=== PATIENT | male | born 1995 | race Caucasian/White ===

== ENCOUNTER 2017-05-26 02:11 | Emergency (ER) | payer BC ==
[2017-05-26 03:29] VITALS: BP 115/72
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
--- NOTE | 2017-05-26 08:06 | RAD ---
HISTORY: Head injury COMPARISONS: None TECHNIQUE: Multiple contiguous axial CT scans were obtained of the head without intravenous contrast. FINDINGS: HEMORRHAGE/INFARCT: There is no hemorrhage or acute infarct. MASSES/SHIFT: There is no mass or shift. EXTRA-AXIAL SPACES: There are no extra-axial fluid collections. SULCI AND VENTRICLES: The sulci and ventricles are normal in size and position for the patient's stated age. CEREBRUM: There are no focal parenchymal abnormalities. BRAINSTEM: There are no focal parenchymal abnormalities. CEREBELLUM: There are no focal parenchymal abnormalities. VESSELS: The vessels are grossly normal. PARANASAL SINUSES: The paranasal sinuses are clear. ORBITS: The orbits are unremarkable. BONES AND SOFT TISSUE: No bone or soft tissue abnormalities are noted. OTHER: None IMPRESSION: NO ACUTE INTRACRANIAL PATHOLOGY.
--- NOTE | 2017-05-26 08:06 | RAD ---
HISTORY: Right wrist pain, injury COMPARISONS: January 05, 2010 VIEWS: 3, Frontal, lateral, and oblique views of the right wrist FINDINGS: BONE DENSITY: Normal. BONES: There is no displaced fracture. JOINTS: There is no arthropathy. ALIGNMENT: There is no dislocation. SOFT TISSUES: Unremarkable. OTHER FINDINGS: None. IMPRESSION: NO ACUTE OSSEOUS INJURY. IF SYMPTOMS PERSIST, RECOMMEND REPEAT IMAGING.
== END 2017-05-26 05:00 | disposition home or self-care (01) ==
LOC: ED 02:11
DX: S09.90XA Unspecified injury of head, initial encounter (principal); F10.129 Alcohol abuse with intoxication, unspecified; R51 Headache; Z87.891 Personal history of nicotine dependence; Y09 Assault by unspecified means; Y92.9 Unspecified place or not applicable
CPT/HCPCS: 70450; 99283

== ENCOUNTER 2017-10-05 17:44 | Inpatient (IN) | payer BC ==
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
[2017-10-05 19:40] LABS: ABS Basophils 0.1 10^3/ul (0-0.2); ABS Eosinophils 0.1 10^3/ul (0-0.6); ABS Lymphocytes 1.8 10^3/ul (1.0-4.8); ABS Monocytes 0.6 10^3/ul (0-0.8); ABS Neutrophils 6.5 10^3/ul (1.5-7.7); ABS Nucleated RBC 0 10^3/ul; Eosinophil % 1.6 % (0-6); Hematocrit 45 % (42-52); Hemoglobin 15.8 g/dl (14.0-18.0); Lymphocyte % 19.9 % (25-47); Mean Corpuscular HGB Conc 35 g/dl (31-36); Mean Corpuscular Hemoglobin 34 pg (27-31); Mean Corpuscular Volume 95 fL (80-94); Mean Platelet Volume 7.4 um3 (7.4-10.4); Nucleated Red Blood Cells % 0.3; Platelet Count 257 10^3/ul (150-450); Red Blood Count 4.73 10^6/ul (4.00-5.40); Red Cell Distribution Width 12 % (10.5-15); White Blood Count 9.1 10^3/ul (3.5-10.8)
[2017-10-05 19:53] LABS: EGFR Non-African American 75.8 (>60)
[2017-10-05 20:36] LABS: Urine Appearance Cloudy; Urine Blood Negative (Negative); Urine Color Yellow; Urine Ketones Negative (Negative); Urine Protein 1+(30 mg/dL) (Negative); Urine Red Blood Cell Absent (Absent); Urine Specific Gravity 1.028 (1.010-1.030); Urine Urobilinogen Negative (Negative); Urine White Blood Cell Absent (Absent)
[2017-10-06] MEDS ORDERED: Acetaminophen TAB* 325 MG PO PRN (00:15)
[2017-10-06] MEDS ORDERED: diPHENhydraMINE PO* 50 MG PO PRN (00:17)
[2017-10-06] MEDS ORDERED: chlorproMAZINE TAB* 50 MG PO PRN (00:18)
[2017-10-06] MEDS ORDERED: clonazePAM TAB(*) 1 MG PO ONE (00:20)
[2017-10-06] MEDS: Vitamin THERAPEUTIC TAB PO SCH (10:15)
[2017-10-06] MEDS: Venlafaxine EXT RELEASE CAP* 37.5 MG PO SCH (16:17)
[2017-10-06] MEDS: clonazePAM TAB(*) 1 MG PO PRN ×2 (16:18→21:34)
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
[2017-10-06] MEDS: Gabapentin CAP(*) 400 MG PO SCH (21:33)
[2017-10-06] MEDS ORDERED: LORazepam INJ* 2 MG/ML 1 ML VIAL ONE (23:28)
[2017-10-06] MEDS ORDERED: NS 0.9% 1000 ML* 1,000 ML IV SCH (23:45)
[2017-10-06] MEDS ORDERED: Metoprolol Tartrate IV* 1 MG/ML 5 ML VIAL ONE (23:53)
[2017-10-07] MEDS ORDERED: LORazepam INJ* 2 MG/ML 1 ML VIAL ONE
[2017-10-07] MEDS ORDERED: Metoprolol Tartrate IV* 1 MG/ML 5 ML VIAL IV ONE (00:02)
[2017-10-07] MEDS ORDERED: LORazepam INJ* 2 MG/ML 1 ML VIAL IV PUSH ONE (00:04)
[2017-10-07 00:29] LABS: EGFR Non-African American 87.5 (>60)
[2017-10-07 00:51] LABS: INR 0.93 (0.77-1.02)
[2017-10-07 01:00] LABS: ABS Basophils 0.1 10^3/ul (0-0.2); ABS Eosinophils 0.2 10^3/ul (0-0.6); ABS Lymphocytes 4.7 10^3/ul (1.0-4.8); ABS Monocytes 1.3 10^3/ul (0-0.8); ABS Neutrophils 8.5 10^3/ul (1.5-7.7); ABS Nucleated RBC 0.1 10^3/ul; Hematocrit 51 % (42-52); Hemoglobin 17.7 g/dl (14.0-18.0); Lymphocyte % 32.1 % (25-47); Mean Corpuscular HGB Conc 35 g/dl (31-36); Mean Corpuscular Hemoglobin 34 pg (27-31); Mean Corpuscular Volume 96 fL (80-94); Mean Platelet Volume 8.6 um3 (7.4-10.4); Nucleated Red Blood Cells % 0.3; Platelet Count 315 10^3/ul (150-450); Red Blood Count 5.27 10^6/ul (4.00-5.40); Red Cell Distribution Width 12 % (10.5-15); White Blood Count 14.7 10^3/ul (3.5-10.8)
[2017-10-07] MEDS: NS 0.9% 1000 ML* 1,000 ML IV SCH ×2 (02:43→03:48)
[2017-10-07 03:27] LABS: EGFR Non-African American 93.7 (>60)
--- NOTE | 2017-10-07 03:39 | PN ---
Progress Note - Progress Note Date of Service: 10/07/17 Note: CAT Response PCP: Kelly Hebert MD Date/Time: 10/06/2017 8169 CC: chills, tremors HPI: Mr Joshi is a 22YO male HX "severe anxiety" who was a CAT call from the [facility]. Upon arrival, he was found to be tachypneic in the 40s with tachycardia in the 180-200 range, profusely diaphoretic, with generalized fine tremors. He initially reported only N/T in BLEs & hands, but admitted to sharp non- radiating non-exertional chest pain associated with subjective SOB. Initial ECG was uninterpretable 2nd artifact. Given his acute presentation, emergent stabilization was felt necessary. Per Nut Culler direction he was taken to the ED and managed by me. He had been given 2mg IV lorazepam in [facility] and another 2mg IV after arriving to the ED. He also received 5mg IV metoprolol in ED. This with gentle encouragement allowed him to relax which markedly improved his RR & tachycardia. However as soon as his parents arrived, he returned to tachycaria & tachypnea. Lab values were notable mainly for a lactic acid of 3.6. Repeat ECG was negative for acute finding. His clonazepam has been down titrated on [facility]. He admits to daily marijuana use and 2-3 alcoholic drinks 2-3x/ week. 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; full code status FamHx: Mother: severe anxiety; Father: severe anxiety & anger management issues ; multiple siblings: severe anxiety ROS: as above, otherwise reviewed and all were negative vitals: Vital Signs Temp 36.8 C 10/06/17 07:48 Pulse 68 10/07/17 01:18 Resp 22 10/07/17 01:18 BP 122/81 10/07/17 01:18 Pulse Ox 94 10/07/17 01:18 Intake & Output 10/06/17 10/06/17 10/07/17 11:59 23:59 11:59 Weight 58.967 kg Constitutional: NAD, normally developed, well-nourished male HEENM: atraumatic; sclera/conjunctiva: anicteric/clear; hearing: clinically intact; oropharynx: clear, mucosa moist Neck: soft tissue: non-tender; thyroid: normal Pulmonary: clear to auscultation bilaterally, good aeration, no accessory muscle use CV: RR/RR, normal S1S2, no carotid bruit, no jugular venous distention, 2+ B DP/ PT, no edema Abdominal: soft, non-distended, non-tender, no rebound/guarding/rigidity, normoactive bowel sounds, no hepatosplenomegaly or masses, no costovertebral angle tenderness Musculoskeletal: general: grossly intact, non-tender Integumental: profusely diaphoretic; normal appearance and texture of exposed skin Psychiatric orientation: AA&O to PPS affect: severely anxious mood: cooperative eye contact: poor content: reliable responses: slowed, stuttering insight: poor Testing: Laboratory Results - last 24 hr 10/05/17 10/06/17 10/06/17 19:24 23:10 23:20 WBC RBC Hgb Hct MCV MCH MCHC RDW Plt Count MPV Neut % (Auto) Lymph % (Auto) [place] % (Auto) Eos % (Auto) Baso % (Auto) Absolute Neuts (auto) Absolute Lymphs (auto) Absolute Monos (auto) Absolute Eos (auto) Absolute Basos (auto) Absolute Nucleated RBC Nucleated RBC % INR (Anticoag Therapy) 0.93 APTT 28.1 Sodium Potassium Chloride Carbon Dioxide Anion Gap BUN Creatinine Est GFR ( Amer) Est GFR (Non-Af Amer) BUN/Creatinine Ratio Glucose POC Glucose (mg/dL) 85 Hemoglobin A1c 4.7 Lactic Acid Calcium Ionized Calcium Phosphorus Total Bilirubin AST ALT Alkaline Phosphatase CK-MB (CK-2) Troponin I Total Protein Albumin Globulin Albumin/Globulin Ratio Blood Type Antibody Screen 10/06/17 10/06/17 10/06/17 23:20 23:20 23:20 WBC 14.7 H RBC 5.27 Hgb 17.7 Hct 51 MCV 96 H MCH 34 H MCHC 35 RDW 12 Plt Count 315 MPV 8.6 Neut % (Auto) 57.6 Lymph % (Auto) 32.1 [place] % (Auto) 8.7 H Eos % (Auto) 1.0 Baso % (Auto) 0.6 Absolute Neuts (auto) 8.5 H Absolute Lymphs (auto) 4.7 Absolute Monos (auto) 1.3 H Absolute Eos (auto) 0.2 Absolute Basos (auto) 0.1 Absolute Nucleated RBC 0.1 Nucleated RBC % 0.3 INR (Anticoag Therapy) APTT Sodium 139 Potassium 3.8 Chloride 103 Carbon Dioxide 16 L Anion Gap 20 H BUN 13 Creatinine 1.05 Est GFR ( Amer) 105.9 Est GFR (Non-Af Amer) 87.5 BUN/Creatinine Ratio 12.4 Glucose 104 H POC Glucose (mg/dL) Hemoglobin A1c Lactic Acid Calcium 10.1 Ionized Calcium 4.23 L Phosphorus 2.6 Total Bilirubin AST ALT Alkaline Phosphatase CK-MB (CK-2) 1.7 Troponin I 0.01 Total Protein Albumin Globulin Albumin/Globulin Ratio Blood Type Antibody Screen 10/06/17 10/06/17 10/07/17 23:20 23:20 02:51 WBC RBC Hgb Hct MCV MCH MCHC RDW Plt Count MPV Neut % (Auto) Lymph % (Auto) [place] % (Auto) Eos % (Auto) Baso % (Auto) Absolute Neuts (auto) Absolute Lymphs (auto) Absolute Monos (auto) Absolute Eos (auto) Absolute Basos (auto) Absolute Nucleated RBC Nucleated RBC % INR (Anticoag Therapy) APTT Sodium Potassium Chloride Carbon Dioxide Anion Gap BUN Creatinine Est GFR ( Amer) Est GFR (Non-Af Amer) BUN/Creatinine Ratio Glucose POC Glucose (mg/dL) Hemoglobin A1c Lactic Acid 3.6 H* 0.5 Calcium Ionized Calcium Phosphorus Total Bilirubin AST ALT Alkaline Phosphatase CK-MB (CK-2) Troponin I Total Protein Albumin Globulin Albumin/Globulin Ratio Blood Type O Negative Antibody Screen Negative 10/07/17 02:51 WBC RBC Hgb Hct MCV MCH MCHC RDW Plt Count MPV Neut % (Auto) Lymph % (Auto) [place] % (Auto) Eos % (Auto) Baso % (Auto) Absolute Neuts (auto) Absolute Lymphs (auto) Absolute Monos (auto) Absolute Eos (auto) Absolute Basos (auto) Absolute Nucleated RBC Nucleated RBC % INR (Anticoag Therapy) APTT Sodium 141 Potassium 3.6 Chloride 108 Carbon Dioxide 23 Anion Gap 10 BUN 12 Creatinine 0.99 Est GFR ( Amer) 113.4 Est GFR (Non-Af Amer) 93.7 BUN/Creatinine Ratio 12.1 Glucose 90 POC Glucose (mg/dL) Hemoglobin A1c Lactic Acid Calcium 8.6 Ionized Calcium Phosphorus Total Bilirubin 0.70 AST 18 ALT 10 Alkaline Phosphatase 67 CK-MB (CK-2) Troponin I Total Protein 6.9 Albumin 4.3 Globulin 2.6 Albumin/Globulin Ratio 1.7 Blood Type Antibody Screen ECG, personally reviewed: sinus tachycardia, no ischemia Impression: 22M Hx severe anxiety presenting with same associated with severe tachycardia DIAGNOSIS & PLAN Primary severe anxiety : continue medications as is : given 2mg lorazepam in BSE and another 2mg lorazepan in ED : safety monitor atypical chest pain : telemetry : trend troponin : recheck ECG in AM : transfer care to hospitalist service Admission Rational: medical observation for r/o chest pain DVTp: RACHANA Code Status: full HCP: mother
[2017-10-07] MEDS: Vitamin THERAPEUTIC TAB PO SCH (08:49)
[2017-10-07] MEDS: Al Hydrox/Mg Hydrox/Simet LIQ* 30 ML UDC PO PRN ×2 (08:49→18:03)
[2017-10-07] MEDS: Gabapentin CAP(*) 400 MG PO SCH ×2 (08:49→22:12)
[2017-10-07] MEDS: Venlafaxine EXT RELEASE CAP* 37.5 MG PO SCH (08:49)
[2017-10-07] MEDS: clonazePAM TAB(*) 1 MG PO PRN ×3 (09:33→20:11)
--- NOTE | 2017-10-07 14:26 | PN ---
Subjective Date of Service: 10/07/17 Interval History: Mr. Joshi is initially angry and frustrated but is tearful and apologetic on return exam. He reports continued chest pain and generalized abdominal pain with nausea. Objective Active Medications: Acetaminophen (Tylenol Tab*) 650 mg PO Q4H PRN Al Hydrox/Mg Hydrox/Simethicone (Maalox Plus*) 30 ml PO Q4H PRN Chlorpromazine HCl (Thorazine Tab*) 50 mg PO ONCE PRN Clonazepam (Klonopin Tab(*)) 1 mg PO TID PRN Diphenhydramine HCl (Benadryl Po*) 50 mg PO ONCE PRN Gabapentin (Neurontin Cap(*)) 800 mg PO BID GREGORIO Sodium Chloride (Ns 0.9% 1000 Ml*) 1,000 mls @ 0 mls/hr IV WIDE OPEN GREGORIO Multivitamins (Theragran Tab*) 1 tab PO DAILY GREGORIO Venlafaxine HCl (Effexor Xr Cap*) 37.5 mg PO DAILY GREGORIO Vital Signs: Temp Pulse Resp BP Pulse Ox 98.8 F 79 16 137/76 100 10/07/17 11:40 10/07/17 11:40 10/07/17 11:40 10/07/17 11:40 10/07/17 11:40 Oxygen Devices in Use Now: None Appearance: Male lying in bed in NAD, parents at bedside Eyes: No Scleral Icterus Ears/Nose/Mouth/Throat: Mucous Membranes Moist Neck: Trachea Midline Respiratory: Symmetrical Chest Expansion and Respiratory Effort Cardiovascular: NL Sounds; No Murmurs; No JVD, No Edema Abdominal: - - Soft, generalized tenderness, no rebound, BS + Extremities: No Edema Skin: No Rash or Ulcers Neurological: Alert and Oriented x 3, NL Muscle Strength and Tone Nutrition: Taking PO's Result Diagrams: 10/06/17 23:20 10/07/17 02:51 Assess/Plan/Problems-Billing Assessment: Mr. Joshi is a 22 yo M with a PMH of who was admitted on - Patient Problems (1) Chest pain Comment: - Reports continued chest pain. - Trops negative, EKG without evidence of ischemia. - Suspect related to panic attack and anxiety. If pain persistent, will consider echo tomorrow. (2) Abdominal pain Comment: - Abd xray negative. Labs negative. - Suspect related to stress and anxiety, patient concurs. - Will consider CT abd if persistent tomorrow. (3) Anxiety Comment: - Continue clonazepam and venlafexine per MHU. - Patient originally admitted to MHU and will need to return when medically stable. - Appreciate Dr. Zapien's input. (4) DVT prophylaxis Comment: - Early mobility Status and Disposition: Inpatient. Plan for discharge to MHU when medically stable, likely in AM.
--- NOTE | 2017-10-07 15:54 | RAD ---
Indication: Diaphoresis. Pallor. Abdominal pain. Comparison: No relevant prior exams available on the [facility] [place] for comparison. Technique: Supine and upright views of the abdomen. Report: Negative for free air beneath the diaphragm. Unremarkable bowel gas pattern. No suspicious calcifications or mass effect. Clear lung bases. IMPRESSION: #. No abdominal pelvic pathologic process evident.
--- NOTE | 2017-10-07 16:54 | PN ---
Progress Note - Progress Note Date of Service: 10/07/17 Note: Went to see Anton on medical floor. His parents were there with him the entire period. They were insisting that he be discharges home because the hospital envioronment is responsible for his cardiac condition and he shouldn't be here any longer. Education provided regarding his current health condition and need for him to comeback to the [facility] after medical clearance. Please review my H&P done on 10/06/17 for details specially the disfunction in the household most possible reason for Anton's detorioration of mental status which needs to be looked at by the treatment team on [facility]. They are in agreement and Anton will be back to [facility] after medical stabilization. He is still complaining of chest pain and an Echo-cardiogram is scheduled for tomorrow.
[2017-10-08] MEDS: PROCHLORPERAZINE INJ 5 MG/ML 2 ML VIAL IV PRN ×2 (03:11→10:29)
[2017-10-08] MEDS: clonazePAM TAB(*) 1 MG PO PRN ×2 (03:16→10:27)
--- NOTE | 2017-10-08 07:37 | PN ---
Subjective Date of Service: 10/08/17 Interval History: Mr. Joshi reports that he is feeling better today and denies any chest or abdominal pain. He and his family are eager to return to the Behavioral Health Unit today. Objective Active Medications: Acetaminophen (Tylenol Tab*) 650 mg PO Q4H PRN Al Hydrox/Mg Hydrox/Simethicone (Maalox Plus*) 30 ml PO Q4H PRN Chlorpromazine HCl (Thorazine Tab*) 50 mg PO ONCE PRN Clonazepam (Klonopin Tab(*)) 1 mg PO TID PRN Diphenhydramine HCl (Benadryl Po*) 50 mg PO ONCE PRN Gabapentin (Neurontin Cap(*)) 800 mg PO BID GREGORIO Multivitamins (Theragran Tab*) 1 tab PO DAILY GREGORIO Prochlorperazine Edisylate (Compazine Inj*) 5 mg IV Q6H PRN Venlafaxine HCl (Effexor Xr Cap*) 37.5 mg PO DAILY GREGORIO Vital Signs: Temp Pulse Resp BP Pulse Ox 97.6 F 84 16 131/90 100 10/08/17 03:05 10/08/17 03:36 10/08/17 05:00 10/08/17 03:36 10/08/17 03:36 Oxygen Devices in Use Now: None Appearance: Male lying in bed in NAD Eyes: No Scleral Icterus Ears/Nose/Mouth/Throat: Mucous Membranes Moist Neck: Trachea Midline Respiratory: Symmetrical Chest Expansion and Respiratory Effort, Clear to Auscultation Cardiovascular: NL Sounds; No Murmurs; No JVD, No Edema Extremities: No Edema Skin: No Rash or Ulcers Neurological: Alert and Oriented x 3, NL Muscle Strength and Tone Nutrition: Taking PO's Result Diagrams: 10/06/17 23:20 10/07/17 02:51 Assess/Plan/Problems-Billing Assessment: Mr. Joshi is a 22 yo M with a PMH of who was admitted on - Patient Problems (1) Chest pain Comment: - Resolved. - Trops negative, EKG without evidence of ischemia. - Suspect related to panic attack and anxiety. (2) Abdominal pain Comment: - Abd xray negative. Labs negative. - Suspect related to stress and anxiety, patient concurs. (3) Anxiety Comment: - Continue clonazepam and venlafexine per MHU. - Patient originally admitted to MHU and will need to return today. - Appreciate Dr. Zapien's input. (4) DVT prophylaxis Comment: - Early mobility Status and Disposition: Inpatient. Discharge to U.
[2017-10-08] MEDS: Gabapentin CAP(*) 400 MG PO SCH (07:56)
[2017-10-08] MEDS: Venlafaxine EXT RELEASE CAP* 37.5 MG PO SCH (07:57)
[2017-10-08] MEDS: Vitamin THERAPEUTIC TAB PO SCH (07:57)
[2017-10-08] MEDS: Al Hydrox/Mg Hydrox/Simet LIQ* 30 ML UDC PO PRN (08:32)
[2017-10-08 08:33] LABS: ABS Basophils 0.1 10^3/ul (0-0.2); ABS Eosinophils 0.1 10^3/ul (0-0.6); ABS Lymphocytes 2.8 10^3/ul (1.0-4.8); ABS Monocytes 0.8 10^3/ul (0-0.8); ABS Neutrophils 6.7 10^3/ul (1.5-7.7); ABS Nucleated RBC 0 10^3/ul; Eosinophil % 0.5 % (0-6); Hematocrit 46 % (42-52); Hemoglobin 16.4 g/dl (14.0-18.0); Lymphocyte % 27.1 % (25-47); Mean Corpuscular HGB Conc 36 g/dl (31-36); Mean Corpuscular Hemoglobin 33 pg (27-31); Mean Corpuscular Volume 93 fL (80-94); Mean Platelet Volume 8.1 um3 (7.4-10.4); Nucleated Red Blood Cells % 0.2; Platelet Count 272 10^3/ul (150-450); Red Blood Count 4.95 10^6/ul (4.00-5.40); Red Cell Distribution Width 12 % (10.5-15); White Blood Count 10.5 10^3/ul (3.5-10.8)
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
--- NOTE | 2017-10-08 13:03 | PN ---
Subjective - Subjective Date of Service: 10/08/17 Service Type: 10886 Hosp care 25 min moderate complexity Subjective: Patient was seen by self, discussed with treatment team, chart was reviewed. Patient has been compliant with his medications on the floors, no reported side effects. Patient reports improvement in his symptoms of mood and anxiety. Patient reports that Adderall has been causing his anxiety and mood to get worse. And patient's Klonopin dose has been increased by outpatient provider to counter anxiety and tolerance. Patient on the floor has been doing better managing that. Also after interviewing with patient, family including both mother and father were involved and Patient sleeping has been better on the unit. Patient eating has been fair. Patient has been cooperative with staff. Patient behavior has been in control on the floor with no dangerous behavior to self and others. Patient mood was less anxious and less dysphoric. Patient was able to communicate his feelings with parents and also family was educated about current condition and preventative measure and problem solving in moment of stress. Patient after having a session with family was able to find them supportive than punitive. Parents were able to understand their mistakes and reported that they are going to therapy session regularly to overcome their dysfunctional family system. Patient was offered voluntary hospitalization but was not interested in inpatient but agreed to go to outpatient follow up and [facility] program. Patient also wants to give his effort in the upcoming exam but is not worried about the outcome. Patietn and family feel safe returning home and currently is not danger to self and others and caring for himself and did not meeting criteria for involuntary hospitalization. Patient has been reporting no suicidal or homicidal ideation. No psychotic symptoms of delusions or hallucinations. Objective - Appearance Appearance: Healthy Appearing Dysmorphic Features: No Hygiene: Normal Grooming: Fairly Well Kept - Behavior Psychomotor Activities: Normal Exhibits Abnormal Movement: No - Attitude and Relatedness Attitude and Relatedness: Cooperative Eye Contact: Fair - Speech Quality: Unpressured Latencies: Normal Quantity: Appropriate - Mood Patient's Decription of Mood: "Okay" - Affect Observed Affect: Fair Affect Consistent with: Euthymia - some anxiety - Thought Process Patient's Thought Process: Coherent Thought Content: No Passive Wish, No Suicidal Planning, No Homicidal Ideation, No Paranoid Ideation - Sensorium Experiencing Hallucinations: No, Sensorium is Clear Type of Hallucinations: Visual: No, Auditory: No, Command: No - Level of Consciousness Level of Consciousness: Alert Orientation: Yes Intact, Yes Orientated to Time, Yes Orientated to Place, Yes Orientated to Person - Impulse Control Impulse Control: Intact - Insight and Judgement Insight and Judgement: Fair - Medication Management Medication Management Adherence: Yes Assessment - Assessment Inpatient DSM-V Dx: F43.25 Clinical Impression: Patient with history of depression, anxiety and attention deficit. Patient was recently admitted due to worsening of his behavior and mood deregulation and later was transfered to medical floor due to benzo withdrawal symptoms. Patient has also been having interpersonal difficulty at home with his parents . Family has been trying to make it helpful for everyone at home and address their emotional needs and have better understanding of each other. Patient is not a danger to self and others at this time and caring for self and agreeing to outpatient psychiatric treatment both medication management and therapy. Plan - Plan Treatment Plan: Name: KAYE HARMON Birthdate: 1995 [id number] - Patient and family agreed to the discharge and wanting to f/u outpatient psychiatric treatment for medication and therapy - Patient and family offered inpatient care for medication adjustment but wanting to do outpatient and currently do not meet criteria for inpatient psychiatric care. - Continue with current psychotropic medications. Medications: Current Medications Acetaminophen (Tylenol Tab*) 650 mg PO Q4H PRN PRN Reason: PAIN or TEMP > 101 F Last Admin: 10/07/17 08:49 Dose: 650 mg Al Hydrox/Mg Hydrox/Simethicone (Maalox Plus*) 30 ml PO Q4H PRN PRN Reason: INDIGESTION Last Admin: 10/08/17 08:32 Dose: 30 ml Chlorpromazine HCl (Thorazine Tab*) 50 mg PO ONCE PRN PRN Reason: .ANXIETY Clonazepam (Klonopin Tab(*)) 1 mg PO TID PRN PRN Reason: ANXIETY Last Admin: 10/08/17 10:27 Dose: 1 mg Diphenhydramine HCl (Benadryl Po*) 50 mg PO ONCE PRN PRN Reason: ANXIETY Last Admin: 10/06/17 00:48 Dose: 50 mg Gabapentin (Neurontin Cap(*)) 800 mg PO BID [facility] Last Admin: 10/08/17 07:56 Dose: 800 mg Multivitamins (Theragran Tab*) 1 tab PO DAILY [facility] Last Admin: 10/08/17 07:57 Dose: 1 tab Prochlorperazine Edisylate (Compazine Inj*) 5 mg IV Q6H PRN PRN Reason: NAUSEA/VOMITING Last Admin: 10/08/17 10:29 Dose: 5 mg Venlafaxine HCl (Effexor Xr Cap*) 37.5 mg PO DAILY GREGORIO Last Admin: 10/08/17 07:57 Dose: 37.5 mg - Discharge Plan Discharge Plan: Outpatient Follow Up
[2017-10-08 13:14] VITALS: BP 136/83
== END 2017-10-06 23:46 | disposition home or self-care (01) | DRG 756 ==
LOC: EDBD → ED 17:44 → BSU 23:05 → MERGE 23:05 → BSU 10-07 02:14 → MEDTELE 10-07 02:14 → MED 10-07 22:38 → MEDTELE 10-07 22:38 → UNDODISIN 10-08 15:00
PROVIDERS: ADMIT Psychiatry & Neurology Psychiatry; ATTEND Internal Medicine
DX: F41.8 Other specified anxiety disorders (principal); E87.2 Acidosis; F43.25 Adjustment disorder with mixed disturbance of emotions and conduct; R07.9 Chest pain, unspecified; F12.10 Cannabis abuse, uncomplicated; F10.10 Alcohol abuse, uncomplicated; Y90.0 Blood alcohol level of less than 20 mg/100 ml; R10.9 Unspecified abdominal pain; Z81.8 Family history of other mental and behavioral disorders
CPT/HCPCS: 36415; 74019; 80048; 80053; 80061; 80307; 80320; 80329; 81003; 81015; 82330; 82553; 83036; 83605; 83970; 84100; 84145; 84443; 84484; 85025; 85610; 85652; 85730; 86140; 86850; 86900; 86901; 93005; 99284; 99406; A9270-GY; G0480; J0780; J2060; J3490

== ENCOUNTER 2018-01-17 17:48 | Emergency (ER) | payer BC ==
[2018-01-17] MEDS ORDERED: Famotidine IV* 10 MG/ML 2 ML (20 mg) IV SLOW PU ONE (17:55)
[2018-01-17] MEDS ORDERED: NS 0.9% 1000 ML* 1,000 ML BOLUS ONE (17:55)
[2018-01-17] MEDS ORDERED: LORazepam INJ* 2 MG/ML 1 ML VIAL IV PUSH ONE (17:57)
[2018-01-17] MEDS ORDERED: Albuterol 2.5 MG/3 ML NEB.SOL* (0.083%) INH ONE (18:56)
[2018-01-17] MEDS ORDERED: Ipratropium 0.5MG/2.5ML NEB* 0.5 MG/2.5 ML NEB.SOLN INH ONE (18:56)
[2018-01-17] MEDS ORDERED: cefTRIAXone VIAL(*) 1,000 MG in NS 0.9% 50 ML* 50 ML IVPB ONE (19:50)
[2018-01-17] MEDS ORDERED: methylPREDNISolone 125 MG* 2 ML VIAL IV ONE (19:50)
[2018-01-17] MEDS ORDERED: Albuterol HFA INHALER* 8 gm MDI INH ONE (19:51)
--- NOTE | 2018-01-17 19:52 | UC ---
Respiratory Complaint HPI - HPI Summary HPI Summary: The patient is a 22-year-old male with the onset of cough, wheezing, chest pain and pressure, anxiety, nausea/ vomiting that all started on the evening of January 14. He has not had fever or chills. He has had multiple episodes of vomiting. He presented here feeling dyspneic and with severe nausea. He takes Klonopin for anxiety but has not been able to tolerate it due to his nausea and vomiting. He has never had wheezing before. - History of Current Complaint Chief Complaint: UCGeneralIllness Stated Complaint: SOB,VOMITING Time Seen by Provider: 01/17/18 17:50 Hx Obtained From: Patient Onset/Duration: Gradual Onset, Lasting Days Timing: Constant Severity Initially: Mild Severity Currently: Severe Pain Intensity: 0 Pain Scale Used: 0-10 Numeric Character: Cough: Productive Aggravating Factors: Exertion, Deep Breaths Alleviating Factors: Nothing Associated Signs And Symptoms: Positive: Dyspnea, Wheezing - Allergies/Home Medications Allergies/Adverse Reactions: Allergies Allergy/AdvReac Type Severity Reaction Status Date / Time No Known Allergies Allergy Verified 01/17/18 17:53 PMH/Surg Hx/FS Hx/Imm Hx Previously Healthy: Yes Psychological History: Anxiety Other History Of: Negative For: Anticoagulant Therapy - Surgical History Surgical History: Yes Surgery Procedure, Year, and Place: patient states multiple surgeries for soccer injuries, unable to report dates and types of surgery - Family History Known Family History: Positive: Hypertension, Other - mental illness Negative: Renal Disease - Social History Alcohol Use: Rare Alcohol Amount: 1-2 drinks Substance Use Type: Marijuana Smoking Status (MU): Former Smoker Type: Cigarettes - Immunization History Most Recent Influenza Vaccination: 2017 Most Recent Pneumonia Vaccination: N/A Review of Systems Constitutional: Fatigue Skin: Negative Eyes: Negative ENT: Negative Respiratory: Shortness Of Breath, Cough Cardiovascular: Negative Gastrointestinal: Vomiting, Nausea Genitourinary: Negative Motor: Negative Neurovascular: Negative Musculoskeletal: Negative Neurological: Negative Psychological: Anxious All Other Systems Reviewed And Are Negative: Yes Physical Exam Triage Information Reviewed: Yes Appearance: No Pain Distress, Well-Nourished, Ill-Appearing Vital Signs: Initial Vital Signs Temp 98 F 01/17/18 17:54 Pulse 74 01/17/18 17:54 Resp 18 01/17/18 17:54 BP 141/88 01/17/18 17:54 Pulse Ox 100 01/17/18 17:54 Eye Exam: Normal Eyes: Positive: Conjunctiva Clear ENT: Positive: Hearing grossly normal, Uvula midline. Negative: Nasal congestion, Nasal drainage, Tonsillar swelling, Tonsillar exudate, Trismus, Hoarse voice, Sinus tenderness Neck: Positive: Supple, Nontender, No Lymphadenopathy Respiratory: Positive: No respiratory distress, Wheezing Cardiovascular: Positive: RRR, No Murmur. Negative: Tachycardia Abdomen Description: Positive: Nontender, No Organomegaly, Soft Musculoskeletal: Positive: ROM Intact, No Edema Neurological: Positive: Alert Psychological Exam: Normal Skin Exam: Normal UC Diagnostic Evaluation - Laboratory O2 Sat by Pulse Oximetry: 100 - normal/not hypxic - Radiology Radiology Interpretation Completed By: ED Physician Summary of Radiographic Findings: NAD Re-Evaluation - Re-Evaluation First Eval Re-Evaluation Time: 20:02 Change: Improved - markedly improved after neb, some mild wheezing. Still has some nausea Respiratory Course/Dx - Differential Dx/Diagnosis Provider Diagnoses: Acute bronchitis. Acute bronchospasm. nausea and vomiting Discharge - Sign-Out/Discharge Documenting (check all that apply): Patient Departure All imaging exams completed and their final reports reviewed: No - Discharge Plan Condition: Improved Disposition: HOME Prescriptions: Amoxicillin PO (*) [Amoxicillin 875 MG (*)] 875 mg PO BID #14 tab predniSONE [Deltasone 20 MG TAB] 40 mg PO DAILY #10 tab Patient Education Materials: Acute Bronchitis (ED), Bronchospasm (ED) Referrals: Flako Hebert MD [Primary Care Provider] - 4 Days Additional Instructions: recheck for new or worsening symptoms be sure to see Dr. Hebert early next week for recheck use inhaler with spacer 2 puffs 4x day for 7 days official XR reading pending - Billing Disposition and Condition Condition: IMPROVED Disposition: Home
[2018-01-17] MEDS ORDERED: cefTRIAXone VIAL(*) 1,000 MG VIAL ONE (19:56)
[2018-01-17 20:45] VITALS: BP 128/86
--- NOTE | 2018-01-18 07:50 | RAD ---
Indication: Cough, wheezing. 2 views of the chest including dual energy PA views are reviewed. No prior study is available for comparison. No mediastinal shift is noted. Heart is of normal size and configuration. Lung michel appear clear. IMPRESSION: No active cardiopulmonary disease is noted. R0
--- NOTE | 2018-01-18 10:06 | UC ---
- Progress Note Progress Note: Final X-ray report reviewed. No active cardiopulmonary disease is noted. No change in treatment plan. Re-Evaluation - Re-Evaluation First Eval Re-Evaluation Time: 20:02 Change: Improved - markedly improved after neb, some mild wheezing. Still has some nausea Discharge - Sign-Out/Discharge Documenting (check all that apply): Post-Discharge Follow Up All imaging exams completed and their final reports reviewed: Yes - Discharge Plan Condition: Improved Disposition: HOME Prescriptions: Amoxicillin PO (*) [Amoxicillin 875 MG (*)] 875 mg PO BID #14 tab predniSONE [Deltasone 20 MG TAB] 40 mg PO DAILY #10 tab Patient Education Materials: Acute Bronchitis (ED), Bronchospasm (ED) Referrals: Flako Hebert MD [Primary Care Provider] - 4 Days Additional Instructions: recheck for new or worsening symptoms be sure to see Dr. Hebert early next week for recheck use inhaler with spacer 2 puffs 4x day for 7 days official XR reading pending - Billing Disposition and Condition Condition: IMPROVED Disposition: Home
== END 2018-01-17 20:55 | disposition home or self-care (01) ==
LOC: UCEAST 17:48
DX: J20.9 Acute bronchitis, unspecified (principal); R11.2 Nausea with vomiting, unspecified; Z87.891 Personal history of nicotine dependence
CPT/HCPCS: 71046; 93005; 96360; 96365; 96374; 96375; 99213; A9270-GY; G0463; J0696; J2060; J2930